=== PATIENT | male | born 1990 | race Caucasian/White ===

== ENCOUNTER 2016-12-24 08:10 | Day surgery (SDC) | payer BC ==
[~2016-12-24] VITALS: Ht 177.8 cm; Wt 81.6 kg
[2016-12-24 08:26] VITALS: BP 153/59
[2016-12-24] MEDS ORDERED: PANTOPRAZOLE SO40 MG PO (08:29)
[2016-12-24 08:54] VITALS: BP 153/59
[2016-12-24 08:56] VITALS: BP 153/59
--- NOTE | 2016-12-24 08:56 | CONSULT NOTE ---
History of Present Illness Consult Information Date of Consultation: 12/24/16 Referring Provider: Yordy Cruz MD Reason for Consult/Visit: Lumbar back pain. Bilateral leg radiculopathy symptoms. History of Present Illness: This patient's a pleasant 26-year-old white male the comes our pain clinic for initial consultation regarding chronic low back pain that he describes a slight, dull, aching at times. His main complaint is bilateral leg radiculopathy symptoms to the knee. He describes this as sharp, stabbing at times. He rates his pain 6/10. 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 He states this intensifies the pain. I reviewed his lumbar MRI which reveals IMPRESSION: 1. No disc herniation or canal stenosis. 2. Minimal bulging disc L4-L5 and L5-S1 with some minimal facet hypertrophic change at these levels and minimal bilateral foraminal narrowing Discussed treatment options with the patient. I think would be reasonable to try lumbar epidural steroid injection at the L4-5 level. I discussed in detail with the patient regarding the injection. He wishes to proceed. Allergies Coded Allergies: No Known Allergies (12/24/16) Current Home Medications Reported Medications Pantoprazole Sodium (Pantoprazole 40MG) 40 MG PO BID Medical/Surgical/Social Hx Medical History Lumbar back pain. Bilateral hip and leg pain. Surgical History Previous Surgery?Y WISDOM TEETH Family History Noncontributory Social History Tobacco Use: Type: Packs/day: If you ae a former smoker-when did you quit? Have you smoked in the last 30 days? Do you dip or chew tobacco? Are you exposed to second hand smoke? Alcohol/Drug Use: [Denies] Occupation: [Works in a factory] Marital Status: Support System: [Fair] Review of Systems ROS Systems reviewed and negative: GI, , allergy/immunity, cardiovascular, constitutional, endocrine, Ear/Nose/Throat, eyes, heme, musculoskeletal (lumbar back pain), neuro, psychiatric, respiratory, skin Other: Patient's awake alert oriented 3. In acute distress. Flexion states lumbar spine somewhat guarded secondary to pain. Deep tendon reflexes upper lower extreme is normal. Motor strength upper lower extremity is normal. There is no gross sensory deficit. Gait is normal. Positive straight leg raise at 30 degrees bilaterally. TEST positive bilateral lumbar spine. Physical Exam/Findings Physical Exam Vital Signs Vital Signs Date Time Temp Pulse Resp B/P Pulse O2 O2 Flow FiO2 Ox Delivery Rate 12/24 825 97.6 54 18 153/59 98 12/24 825 97.6 54 18 153/59 98 General Appearance normal appearance, no apparent distress Respiratory Status No: respiratory distress. Cardiovascular regular rate/rhythm Neurologic alert, oriented x 3 Mental status normal mood/affect Risk Assessment Opioid risk tool Opioid risk tool: Pain clinic ORT (male) Pain clinic ORT (male) Response Value Family hx of alcohol? No 0 Family hx illegal drugs? No 0 Family hx of Rx drugs? No 0 Personal hx alcohol abuse? No 0 Personal hx illegal drugs? No 0 Personal hx of Rx drugs? No 0 Age? 16-45 1 Hx of sex abuse? No 0 ADD,OCD,bipolar,shizo...? No 0 Depression? No 0 Total 1 CAGE-AID Questionaire CAGE-AID Questionaire Assessment/Plan Impression/Problem List 1. Bulging lumbar disc 2. Lumbar back pain with radiculopathy affecting left lower extremity 3. Lumbar back pain with radiculopathy affecting right lower extremity Plan: Discussed in detail with the patient regarding treatment options. I think would be reasonable to go with lumbar epidural steroid injection at the L4-5 level. Patient wishes to proceed. at [id number]
[2016-12-24 09:07] VITALS: BP 147/57
--- NOTE | 2017-01-20 09:24 | Procedure Note ---
Procedure detail Date of procedure: 12/24/16 Anesthesiologist: Howie Puri CRNA Complications: None Pre-procedure diagnosis: Disc bulge at L4-L5, L5-S1 Post-procedure diagnosis: Same Indications for procedure: This patient's a pleasant 26-year-old white male the comes our pain clinic for initial consultation regarding chronic low back pain that he describes a slight, dull, aching at times. His main complaint is bilateral leg radiculopathy symptoms to the knee. He describes this as sharp, stabbing at times. He rates his pain 6/10. 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 He states this intensifies the pain. I reviewed his lumbar MRI which reveals IMPRESSION: 1. No disc herniation or canal stenosis. 2. Minimal bulging disc L4-L5 and L5-S1 with some minimal facet hypertrophic change at these levels and minimal bilateral foraminal narrowing Discussed treatment options with the patient. I think would be reasonable to try lumbar epidural steroid injection at the L4-5 level. I discussed in detail with the patient regarding the injection. He wishes to proceed. Procedure detail: Procedure: Lumbar epidural steroid injection under fluoroscopy Informed consent was obtained and the risks and benefits of the procedure were explained to the patient. The patient was taken to the procedure room and noninvasive monitors placed, including noninvasive blood pressure cuff and pulse oximeter. The back was viewed using C-arm Fluoroscopy and prepped using Betadine as a cleansing solution and the L4-L5 interspace was palpated. Skin and subcutaneous tissues were anesthetized using lidocaine 1.5% and a 25-gauge needle. After this, an 18-gauge Touhy epidural needle was placed into the L4-L5 interspace and advanced using fluoroscopic guidance and loss of resistance to air until the epidural space was encountered. After confirmation of needle placement in the epidural space, with dye, a solution containing lidocaine 1.5%, 4 mL and Depo-Medrol 80 mg were incrementally injected into the lumbar epidural space. The patient tolerated the procedure well with no complications. The patient was observed in the Pain Clinic and then discharged home neurologically intact. Plan and disposition: We will follow up with this patient reevaluate his symptoms in our clinic. I reevaluated the patient prior to discharge today. He's doing quite well. He has no complaints at 0924
== END 2016-12-24 09:07 | disposition home or self-care (01) ==
LOC: PM 08:10
DX: M54.16 Radiculopathy, lumbar region (principal)
CPT/HCPCS: J1040; Q9966